=== PATIENT | female | born 1940 | race Caucasian/White ===

== ENCOUNTER → 2023-06-06 06:47 | Outpatient (REF) | payer MEDICARE, OTHER, SELFPAY ==
[2023-06-06 07:38] LABS: ALT (SGPT) 24 U/L (0-35); AST (SGOT) 29 U/L (14-36); Albumin 3.7 g/dl (3.5-5.0); Alkaline Phosphatase 75 U/L (38-126); Blood Urea Nitrogen 36 mg/dl (7-17); Calcium 9.6 mg/dl (8.4-10.2); Carbon Dioxide 27 mmol/L (22-30); Chloride 102 mmol/L (98-107); Glucose 96 mg/dl (70-99); HDL Cholesterol 65 mg/dl; Iron 92 ug/dl (37-170); LDL Cholesterol, Calculated 85 mg/dl; Potassium 3.8 mmol/L (3.5-5.1); Sodium 137 mmol/L (135-145); Total Bilirubin 0.7 mg/dl (0.2-1.3); Total Cholesterol 184 mg/dl (50-199); Total Protein 6.8 g/dl (6.3-8.2); Triglyceride 170 mg/dl (10-149); Very Low Density Lipoprotein 34 mg/dl (0-30)
[2023-06-06 07:48] LABS: Percent Saturation 35 % (20-50); Total Iron Binding Capacity 259 ug/dl (265-497)
[2023-06-06 08:08] LABS: CEA 6.82 ng/ml
[2023-06-06 08:15] LABS: % Basophils 0.2 % (0-2); % Eosinophils 0.9 % (0-6); % Immature Granulocytes 2.8 % (0-0.5); % Lymphocytes 32.5 % (20.5-51.1); % Monocytes 7.3 % (1.7-9.3); % Neutrophils 56.3 % (42.2-75.2); Absolute Eosinophils 0.1 10^3/uL (0-0.7); Absolute Immature Granulocytes 0.3 10^3/uL (0-0.05); Absolute Lymphocytes 3.7 10^3/uL (1.2-3.4); Absolute Monocytes 0.8 10^3/uL (0.1-0.6); Absolute Neutrophils 6.4 10^3/uL (1.4-6.5); Hemoglobin 11.6 g/dL (12.0-16.0); Mean Corp Hgb Conc. 34.1 g/dL (33.0-37.0); Mean Corpuscular Hgb 28.7 pg (27.0-31.0); Mean Corpuscular Volume 84.2 fL (81.0-99.0); Mean Platelet Volume 9.2 fL (7.4-10.4); Nucleated Red Blood Cells % 0 %; Platelet Count 369 10^3/uL (130-400); Red Blood Cell Count 4.04 10^6/uL (4.20-5.40); Red Cell Dist. Width 13.8 % (11.5-14.5); White Blood Cell Count 11.3 10^3/uL (4.8-10.8)
== END ==
LOC: REG 06:47
PROVIDERS: ATTENDING PHYSICIAN Internal Medicine
DX: E78.00 Pure hypercholesterolemia, unspecified (principal); D50.9 Iron deficiency anemia, unspecified; Z85.048 Personal history of other malignant neoplasm of rectum, rectosigmoid junction, and anus
CPT/HCPCS: 36415; 80053; 80061; 82378; 83519; 83540; 83550; 85025

== ENCOUNTER → 2023-12-13 06:47 | Outpatient (REF) | payer MEDICARE, OTHER, SELFPAY ==
[2023-12-13 08:05] LABS: % Basophils 1.1 % (0-2); % Eosinophils 13.2 % (0-6); % Immature Granulocytes 0.3 % (0-0.5); % Monocytes 7.9 % (1.7-9.3); % Neutrophils 42.5 % (42.2-75.2); Absolute Basophils 0.1 10^3/uL (0-0.2); Absolute Lymphocytes 2.7 10^3/uL (1.2-3.4); Absolute Monocytes 0.6 10^3/uL (0.1-0.6); Absolute Neutrophils 3.2 10^3/uL (1.4-6.5); Hematocrit 36.6 % (37.0-47.0); Hemoglobin 12.1 g/dL (12.0-16.0); Mean Corp Hgb Conc. 33.1 g/dL (33.0-37.0); Mean Corpuscular Hgb 27.9 pg (27.0-31.0); Mean Corpuscular Volume 84.3 fL (81.0-99.0); Mean Platelet Volume 10.1 fL (7.4-10.4); Nucleated Red Blood Cells % 0 %; Platelet Count 253 10^3/uL (130-400); Red Blood Cell Count 4.34 10^6/uL (4.20-5.40); Red Cell Dist. Width 15.2 % (11.5-14.5); White Blood Cell Count 7.6 10^3/uL (4.8-10.8)
[2023-12-13 08:34] LABS: ALT (SGPT) 18 U/L (0-35); AST (SGOT) 30 U/L (14-36); Albumin 4.4 g/dl (3.5-5.0); Alkaline Phosphatase 84 U/L (38-126); Blood Urea Nitrogen 24 mg/dl (7-17); Calcium 10.4 mg/dl (8.4-10.2); Carbon Dioxide 25 mmol/L (22-30); Chloride 105 mmol/L (98-107); Glucose 89 mg/dl (70-99); HDL Cholesterol 61 mg/dl; Iron 84 ug/dl (37-170); LDL Cholesterol, Calculated 102 mg/dl; Sodium 144 mmol/L (135-145); Total Bilirubin 0.7 mg/dl (0.2-1.3); Total Cholesterol 190 mg/dl (50-199); Total Protein 7.5 g/dl (6.3-8.2); Triglyceride 136 mg/dl (10-149); Very Low Density Lipoprotein 27 mg/dl (0-30); eGFR > 60.00
[2023-12-13 08:43] LABS: Percent Saturation 26 % (20-50); Total Iron Binding Capacity 318 ug/dl (265-497)
[2023-12-13 10:32] LABS: CEA 6.88 ng/ml
[2023-12-13 10:39] LABS: Ferritin 69.4 ng/ml (11.1-264.0)
[2023-12-13 14:13] LABS: Intact PTH 49.9 pg/ml (13.6-85.8)
== END ==
LOC: REG 06:47
PROVIDERS: ATTENDING PHYSICIAN Internal Medicine Cardiovascular Disease; FAMILY PHYSICIAN Family Medicine; REFERRING PHYSICIAN Internal Medicine Gastroenterology
DX: D50.9 Iron deficiency anemia, unspecified (principal); Z13.1 Encounter for screening for diabetes mellitus; E78.2 Mixed hyperlipidemia; Z85.048 Personal history of other malignant neoplasm of rectum, rectosigmoid junction, and anus
CPT/HCPCS: 36415; 80053; 80061; 82378; 82728; 83540; 83550; 83970; 85025

== ENCOUNTER → 2024-01-16 09:06 | Outpatient (REF) | payer MEDICARE, OTHER, SELFPAY | LOC: WDC 09:06 | PROVIDERS: ATTENDING PHYSICIAN Family Medicine | DX: N64.59 Other signs and symptoms in breast (principal) | CPT/HCPCS: 76642; 77062; 77066 ==

== ENCOUNTER → 2024-01-25 13:25 | Outpatient (REF) | payer MEDICARE, OTHER, SELFPAY | LOC: RAD 13:25 | PROVIDERS: ATTENDING PHYSICIAN Family Medicine | DX: Z13.820 Encounter for screening for osteoporosis (principal); Z78.0 Asymptomatic menopausal state | CPT/HCPCS: 77080 ==

== ENCOUNTER → 2024-06-14 06:24 | Outpatient (REF) | payer MEDICARE, OTHER, SELFPAY ==
[2024-06-14 06:57] LABS: % Basophils 0.9 % (0-2); % Immature Granulocytes 0.4 % (0-0.5); % Lymphocytes 30.6 % (20.5-51.1); % Monocytes 7.7 % (1.7-9.3); % Neutrophils 49.4 % (42.2-75.2); Absolute Basophils 0.1 10^3/uL (0-0.2); Absolute Lymphocytes 2.9 10^3/uL (1.2-3.4); Absolute Monocytes 0.7 10^3/uL (0.1-0.6); Absolute Neutrophils 4.6 10^3/uL (1.4-6.5); Hematocrit 37.6 % (37.0-47.0); Hemoglobin 12.6 g/dL (12.0-16.0); Mean Corp Hgb Conc. 33.5 g/dL (33.0-37.0); Mean Corpuscular Hgb 28.4 pg (27.0-31.0); Mean Corpuscular Volume 84.7 fL (81.0-99.0); Mean Platelet Volume 9.4 fL (7.4-10.4); Nucleated Red Blood Cells % 0 %; Platelet Count 219 10^3/uL (130-400); Red Blood Cell Count 4.44 10^6/uL (4.20-5.40); Red Cell Dist. Width 13.6 % (11.5-14.5); White Blood Cell Count 9.4 10^3/uL (4.8-10.8)
[2024-06-14 07:32] LABS: ALT (SGPT) 18 U/L (0-35); AST (SGOT) 27 U/L (14-36); Alkaline Phosphatase 86 U/L (38-126); Blood Urea Nitrogen 29 mg/dl (7-17); Calcium 10.2 mg/dl (8.4-10.2); Carbon Dioxide 25 mmol/L (22-30); Chloride 109 mmol/L (98-107); Glucose 95 mg/dl (70-99); HDL Cholesterol 55 mg/dl; LDL Cholesterol, Calculated 131 mg/dl; Potassium 4.1 mmol/L (3.5-5.1); Sodium 144 mmol/L (135-145); Total Bilirubin 0.6 mg/dl (0.2-1.3); Total Cholesterol 217 mg/dl (50-199); Total Protein 7.4 g/dl (6.3-8.2); Triglyceride 157 mg/dl (10-149); Very Low Density Lipoprotein 31 mg/dl (0-30); eGFR > 60.00
[2024-06-14 07:41] LABS: Vitamin D, 25-OH*** 63.2 ng/mL (30-80)
[2024-06-14 07:55] LABS: TSH Reflex To Free T4 3.62 uIU/ml (0.47-4.68)
[2024-06-14 07:58] LABS: CEA 7.81 ng/ml
[2024-06-14 07:59] LABS: Ferritin 37.7 ng/ml (11.1-264.0)
== END ==
LOC: REG 06:24
PROVIDERS: ATTENDING PHYSICIAN Family Medicine
DX: N18.32 Chronic kidney disease, stage 3b (principal); E83.52 Hypercalcemia; Z13.1 Encounter for screening for diabetes mellitus; E78.2 Mixed hyperlipidemia; E55.9 Vitamin D deficiency, unspecified; D50.9 Iron deficiency anemia, unspecified; Z85.048 Personal history of other malignant neoplasm of rectum, rectosigmoid junction, and anus; Z13.29 Encounter for screening for other suspected endocrine disorder
CPT/HCPCS: 36415; 80053; 80061; 82306; 82378; 82728; 83519; 83970; 84443; 85025

== ENCOUNTER → 2024-07-16 13:41 | Outpatient (REF) | payer MEDICARE, OTHER, SELFPAY | LOC: WDC 13:41 | PROVIDERS: ATTENDING PHYSICIAN Surgery; FAMILY PHYSICIAN Family Medicine | DX: R92.8 Other abnormal and inconclusive findings on diagnostic imaging of breast (principal) | CPT/HCPCS: 76642 ==

== ENCOUNTER → 2024-12-24 09:46 | Outpatient (REF) | payer MEDICARE, OTHER, SELFPAY ==
[2024-12-24 10:58] LABS: Hematocrit 36.4 % (37.0-47.0); Hemoglobin 12.1 g/dL (12.0-16.0); Mean Corp Hgb Conc. 33.2 g/dL (33.0-37.0); Mean Corpuscular Volume 85.8 fL (81.0-99.0); Nucleated Red Blood Cells % 0 %; Platelet Count 243 10^3/uL (130-400); Red Cell Dist. Width 14.1 % (11.5-14.5)
[2024-12-24 11:47] LABS: ALT (SGPT) 20 U/L (0-35); AST (SGOT) 27 U/L (14-36); Albumin 4.3 g/dl (3.5-5.0); Alkaline Phosphatase 90 U/L (38-126); Blood Urea Nitrogen 21 mg/dl (7-17); Calcium 9.8 mg/dl (8.4-10.2); Carbon Dioxide 26 mmol/L (22-30); Chloride 108 mmol/L (98-107); Glucose 93 mg/dl (70-99); HDL Cholesterol 60 mg/dl; Iron 84 ug/dl (37-170); LDL Cholesterol, Calculated 120 mg/dl; Potassium 3.9 mmol/L (3.5-5.1); Sodium 141 mmol/L (135-145); Total Protein 7.5 g/dl (6.3-8.2); Very Low Density Lipoprotein 32 mg/dl (0-30); eGFR > 60.00
[2024-12-24 11:56] LABS: Total Iron Binding Capacity 330 ug/dl (265-497)
[2024-12-24 12:14] LABS: CEA 6.72 ng/ml
[2024-12-24 12:20] LABS: Ferritin 76.1 ng/ml (11.1-264.0)
== END ==
LOC: REG 09:46
PROVIDERS: ATTENDING PHYSICIAN Family Medicine
DX: N18.32 Chronic kidney disease, stage 3b (principal); E83.52 Hypercalcemia; Z13.1 Encounter for screening for diabetes mellitus; E78.2 Mixed hyperlipidemia; D50.9 Iron deficiency anemia, unspecified; Z85.048 Personal history of other malignant neoplasm of rectum, rectosigmoid junction, and anus
CPT/HCPCS: 36415; 80053; 80061; 82378; 82728; 83519; 83540; 83550; 83970; 85025

== ENCOUNTER → 2025-02-25 13:45 | Outpatient (REF) | payer MEDICARE, OTHER, SELFPAY | LOC: WDC 13:45 | PROVIDERS: ATTENDING PHYSICIAN Family Medicine | DX: Z12.31 Encounter for screening mammogram for malignant neoplasm of breast (principal); R92.8 Other abnormal and inconclusive findings on diagnostic imaging of breast | CPT/HCPCS: 76642; 77063; 77067 ==